=== PATIENT | born 1980 | race Caucasian/White ===

== ENCOUNTER → 2024-04-14 10:24 | Outpatient (BNVA) | payer OTHER, SELFPAY | PROVIDERS: PCP Family Medicine; Referring Provider Family Medicine; Visit Provider Psychiatry & Neurology Neurology | DX: E55.9 Vitamin D deficiency, unspecified (principal) | CPT/HCPCS: 36415; 80053; 82306; 82607; 82746; 83090; 83735; 83921; 84439; 84443; 84481; 85025; 86160; 86162; 86235; 86255; 86376; 86431 ==

== ENCOUNTER 2024-05-01 08:23 | Outpatient (CLI) | payer OTHER, SELFPAY ==
--- NOTE | 2024-05-01 08:45 | MR_ITS ---
WS: [id number] MRI HEAD WITH CONTRAST TECHNIQUE: Sagittal T1, T2 axial, T2 axial FLAIR, axial susceptibility weighted imaging, axial diffus ion weighted images, and coronal T2 images were obtained. Pre and post-T1 axial and post T1 coronal i mages. ADC and FSPGR images. CLINICAL INFORMATION: G93.2 - Benign intracranial hypertension COMPARISON: None. FINDINGS: Some images degraded by motion. No evidence of restricted diffusion to suggest acute ischemia. Ventricular system and basal cisterns are patent. A few small supratentorial lesions in the LEFT periventricular white matter nonspecific i n a patient of this age but can be seen with demyelinating disease. No significant atrophy of the cor pus callosum. Normal posterior fossa. Normal vascular flow voids at the skull base. No extra-axial fluid collection s. No evidence of mass or mass effect. Paranasal sinuses and mastoid air cells are well aerated. Norm al posterior nasopharynx. No hemosiderin on the susceptibly weighted images. No abnormal intracranial enhancement. Normal visua lized dural venous sinuses. Normal sella. Normal optic chiasm and pituitary infundibulum. Normal cave rnous sinuses and Meckel's cave. MR/MR head wo/w con [id number] IMPRESSION: 1. A few patchy pericallosal lesions nonspecific in a patient of this age but can be seen with demyelinating disease. Recommend clinical correlation. 2. No other suspicious intracranial signal abnormalities 3. Normal sella and optic chiasm. Normal pituitary enhancement. 4. No hemosiderin on susceptibility-weighted images. 5. No other suspicious findings.
--- NOTE | 2024-05-01 09:15 | MR_ITS ---
WS: [id number] MRA HEAD TECHNIQUE: Axial 3-D TOF images obtained with axial images and axial, sagittal, and coronal 2-D refor matted images. CLINICAL INFORMATION: G93.2 - Benign intracranial hypertension COMPARISON: None. FINDINGS: Distal vertebral arteries are patent. Basilar artery is patent. Normal vascularity to the [employer] territo ry bilaterally. Both ICAs are patent at the skull base. Patent anterior communicating artery. Normal vascularity to t he ZA territory. Normal vascularity to the MCA territories bilaterally. No evidence of proximal flow -limiting stenosis or aneurysm. MR/MR angio head wo con [id number] IMPRESSION: Normal intracranial MRA.
[2024-05-01] MEDS: gadobenate dimeglumine 20 mL vial IV (09:59)
== END 2024-05-01 08:24 | disposition home or self-care (01) ==
LOC: RAD 08:24
PROVIDERS: PCP Family Medicine; Visit Provider Psychiatry & Neurology Neurology
DX: G93.2 Benign intracranial hypertension (principal)
CPT/HCPCS: 70544; 70553; A9577

== ENCOUNTER 2024-05-09 08:08 | Outpatient (CLI) | payer OTHER, SELFPAY ==
--- NOTE | 2024-05-09 08:30 | FL_ITS ---
WS: [id number] LUMBAR PUNCTURE UNDER FLUOROSCOPY: OBTAIN CSF FOR ANALYSIS HISTORY: R51.9 - Headache, unspecified COMPARISON: None available. FLUOROSCOPY TIME: 0min [id number] # of spot films: 0 Procedure, complications, and risk and benefits explained to the patient. Consent was obtained. Recen t laboratory work and medication are reviewed prior to procedure. Opening pressure: 7 cm H2O. Skin over the lumbar is cleansed with ChloraPrep and anesthetized with 1% buffered lidocaine. Access into the thecal sac is achieved. CSF is removed in a sterile manner and placed in the sterile tubes. Approximately 12 ml is removed without difficulty. Fluid is clear. No complications are encountered. Patient will be observed for 1 hour post procedure. CSF this into the laboratory for analysis as requested. FL/FL guided lumbarpunc dx* [id number] IMPRESSION: Uncomplicated lumbar puncture for CSF. Lumbar spine opening pressure: 7 cm H2O.
[2024-05-09 10:10] LABS: Mononuclear WBC CSF % 50 % (50-90); Polynuclear WBC CSF % 50 % (0-10); Red Blood Cell CSF 0 10^3/uL (0-0); White Blood Cell CSF 2 /uL (0-5)
[2024-05-09 10:32] LABS: Glucose CSF 62 mg/dL (40-70); Total Protein CSF 36 mg/dL (15-45)
[2024-05-09 10:39] LABS: Appearance CSF CLEAR (CLEAR); Color CSF COLORLESS (COLORLESS)
[2024-05-12 16:09] LABS: Toxoplasma AB IGG <7.20 IU/mL; Toxoplasma AB IGM <8.00 AU/mL
[2024-05-13 06:50] LABS: Epstein Barr Virus DNA PCR NOT DETECTED; Epstein Barr Virus DNA QN PCR NOT DETECTED copies/mL; Epstein Barr Virus Source CEREBROSPINAL FLUID
[2024-05-13 14:49] LABS: HIV RNA (CPY/ML) NOT DETECTED (NOT DETECTED); HIV RNA LOG NOT DETECTED copies/mL (NOT DETECTED)
[2024-05-13 18:04] LABS: Angiotensin Convert Enzy CSF 7 U/L (<=15)
[2024-05-14 16:15] LABS: HTLV I DNA NOT DETECTED; HTLV II DNA NOT DETECTED
[2024-05-15 05:04] LABS: JC Virus DNA Ultra QN PCR NOT DETECTED Log IU/mL; JC Virus Quant CSF PCR NOT DETECTED
[2024-05-16 03:05] LABS: Oligoclonal Bands IGG, CSF ABSENT (ABSENT)
[2024-05-16 11:50] LABS: IgG CSF 1.8 mg/dL (0.8-7.7); IgG Index , CSF 0.44 (<0.70); Immunoglobulin G 714 mg/dL (600-1640); Synthesis Rate IgG, CSF -2.9 mg/24 h (-9.9 TO +3.3)
[2024-05-16 16:15] LABS: West Nile Virus AB (IGG) <1.30 index; West Nile Virus AB (IGM) <0.90 index
[2024-05-16 23:29] LABS: VDRL on CSF NON-REACTIVE
== END 2024-05-09 08:09 | disposition home or self-care (01) ==
LOC: RAD 08:08
PROVIDERS: PCP Family Medicine; Visit Provider Psychiatry & Neurology Neurology
DX: R51.9 Headache, unspecified (principal); R25.9 Unspecified abnormal involuntary movements; R42 Dizziness and giddiness; H02.849 Edema of unspecified eye, unspecified eyelid
CPT/HCPCS: 36415; 62328; 80503; 82040; 82042; 82164; 82784; 82945; 83916; 84157; 86403; 86592; 86777; 86788; 86789; 87015; 87070; 87075; 87116; 87205; 87206; 87327; 87536; 87798; 87799; 87801; 89050